=== PATIENT | male | born 1985 | race Caucasian/White ===

== ENCOUNTER 2017-05-25 21:06 | Emergency (ER) | payer SELFPAY ==
[~2017-05-25] VITALS: Ht 182.9 cm; Wt 99.8 kg
[2017-05-25] MEDS ORDERED: ZANTAC150 MG PO (21:28)
== END 2017-05-25 23:53 | disposition home or self-care (01) ==
LOC: ED 21:06
DX: M54.16 Radiculopathy, lumbar region (principal); K21.9 Gastro-esophageal reflux disease without esophagitis; F17.200 Nicotine dependence, unspecified, uncomplicated; Z88.1 Allergy status to other antibiotic agents; Z79.899 Other long term (current) drug therapy
CPT/HCPCS: 96372; 99283; J1885; J7512

== ENCOUNTER 2018-03-14 18:51 | Emergency (ER) | payer OTHER ==
[~2018-03-14] VITALS: Ht 182.9 cm; Wt 85.7 kg
[~2018-03-14 18:51] MED LIST: ZANTAC150 MG PO
[2018-03-14] MEDS ORDERED: ATIVAN1 MG PO (19:13)
[2018-03-14] MEDS ORDERED: BUSPIRONE HCL10 MG PO (19:14)
[2018-03-14] MEDS ORDERED: TRAZODONE HCL50 MG PO (19:14)
[2018-03-14] MEDS ORDERED: CYCLOBENZAPRINE10 MG PO (19:15)
== END 2018-03-14 19:23 | disposition home or self-care (01) ==
LOC: ED 18:51
DX: M54.32 Sciatica, left side (principal); K21.9 Gastro-esophageal reflux disease without esophagitis; F41.9 Anxiety disorder, unspecified; F17.200 Nicotine dependence, unspecified, uncomplicated; Z88.0 Allergy status to penicillin; Z79.899 Other long term (current) drug therapy
CPT/HCPCS: 99283